=== PATIENT | male | born 2000 | race Caucasian/White ===

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

== ENCOUNTER 2021-08-03 09:58 | Emergency (ER) | payer MEDICAID, SELFPAY ==
[2021-08-03 10:02] VITALS: BP 150/67; PULSE 77; RESP 18; TEMP 36.8; O2SAT 100
--- NOTE | 2021-08-03 10:15 | DI.RAD_ITS ---
Exam(s) XR FINGER RT RING EXAM: XR FINGER RT RING CLINICAL HISTORY: crush injury. TECHNIQUE: 2D digital imaging was performed. COMPARISON: No exams were available for comparison FINDINGS: There is a displaced comminuted fracture of the tuft of the distal phalanx of the 4th-ring finger. N o radiopaque foreign body. No osseous lesions. Fracture does not involve the proximal aspect of the distal phalanx nor the DIP joint. IMPRESSION: DATA REPOSITORY: RADIATION DOSE DELIVERED:
--- NOTE | 2021-08-03 10:27 | ED.GENADUL_ITS ---
Discharge Plan Disposition Patient Disposition: HOME Condition: Stable Discharge Details Clinical Impression: Open finger fracture Primary Care Provider: None,None ED Provider: Kevin Beverly Home Meds and New Rx's Prescriptions: New cephalexin 500 mg capsule 500 mg PO QID 7 Days Qty: 28 0RF Discharge Instructions Instructions: Finger Fracture (ED) Additional Instructions: Keep your wound clean and dry, change antibiotic dressing daily. Wear finger splint until reevaluation with orthopedics. Keflex as directed. Pxex-[id number] Tylenol and/or Motrin as directed for discomfort. Rest, elevate, cool compresses every 2 hours for 20 minutes. I have placed you on the orthopedic list to help expedite outpatient orthopedic care. Please contact the office of Dr. Pearson tomorrow to set up outpatient follow-up appointment Referrals: Ion Pearson MD [ [facility] STAFF PHYSICIAN] - Discharge Data Discharge Date/Time-TO BE ENTERED AT DEPARTURE: 08/03/21 12:09 Medical Decision Making 21-year-old gentleman presents for right ring finger injury, he is right-hand dominant, the injury occurred at least a week ago, feels as though it is getting worse and he ripped his nail off today. Plan is to clean the area and appropriately dressed with antibiotic dressing and splint. Given he feels it is getting worse I will obtain routine laboratory values as well as obtain x-ray to rule out open fracture. CBC and CMP are unremarkable. No leukocytosis. X-ray reveals a comminuted fracture of the tuft. Given the injury occurred over a week ago there is nothing to physically repair today. Because he feels as though the pain is getting worse, in the setting of an open fracture, will initiate antibiotic therapy, first dose given now. By chance Dr. Pearson was in the ER evaluating other patient and I was able to quickly consult with Dr. Pearson who was able to personally evaluate the patient, comfortable with discharge and will be happy to follow him as an outpatient in his office. He was placed on the care management list to help expedite outpatient follow-up. Finger was appropriately cleaned, dressed and splinted. Patient has no additional questions or concerns and is comfortable discharge. Standard discharge and return precautions were provided This documentation was generated using [email or web address], please disregard any oddities of phrase or misspellings. Medical Records Medical records reviewed: Yes I reviewed the patient's medical records. Imaging Data Radiologic Study: Attestation: I personally reviewed and interpreted this imaging study as follows: Imaging: X-Ray Radiologist's impression: Exam(s) XR FINGER RT RING EXAM: XR FINGER RT RING CLINICAL HISTORY: crush injury. TECHNIQUE: 2D digital imaging was performed. COMPARISON: No exams were available for comparison FINDINGS: There is a displaced comminuted fracture of the tuft of the distal phalanx of the 4th-ring finger. No radiopaque foreign body. No osseous lesions. Fracture does not involve the proximal aspect of the distal phalanx nor the DIP joint. Lab Data Lab results reviewed: Yes I reviewed the patient's lab results. Labs: Laboratory Tests Range/Units 08/03/21 08/03/21 10:46 10:46 WBC (4.4-10.8) 10^3/uL 10.41 RBC (4.36-5.78) 10^6/uL 4.96 Hgb (13.5-17.5) g/dL 15.9 Hct (40.0-50.0) % 46.8 MCV (80-95) fL 94.4 MCH (27.0-33.0) pg 32.1 MCHC (32.0-36.0) % 34.0 RDW (11.8-14.1) % 12.0 Plt Count (130-400) 10^3/uL 226 MPV (8.0-11.0) fL 9.2 Immature Gran % 0.8 Neutrophils % 63.1 Lymphocytes % 23.0 Monocytes % 10.6 Eosinophils % 1.8 Basophils % 0.7 Nucleated RBC % % 0 Absolute Neutrophils (1.2-6.7) 10^3/uL 6.58 Absolute Lymphocytes (1.2-3.4) 10^3/uL 2.39 Absolute Monocytes (0.1-0.8) 10^3/uL 1.10 H Absolute Eosinophils (0.0-0.7) 10^3/uL 0.19 Absolute Basophils (0.0-0.2) 10^3/uL 0.07 Sodium (136-145) mmol/L 141 Potassium (3.5-5.1) mmol/L 4.3 Chloride (98-107) mmol/L 105 Carbon Dioxide (21.0-32.0) mmol/L 30.0 Anion Gap (3-11) mmol/L 6.0 BUN (7-18) mg/dL 12 Creatinine (0.70-1.30) mg/dL 0.8 Estimated GFR/1.73 m2 (mL/min/1.73m2) >= 60.00 Glucose (74-106) mg/dL 83 Calcium (8.5-10.1) mg/dL 9.1 Total Bilirubin (0.2-1.0) mg/dL 0.3 AST (15-37) U/L 18 ALT (16-63) U/L 34 Alkaline Phosphatase (46-116) U/L 59 Total Protein (6.4-8.2) g/dL 7.6 Albumin (3.4-5.0) g/dL 3.7 HPI General Mode of arrival: ambulatory . Date/Time Provider Initiated Documentation: 08/03/21 10:00 . Limitations to Documentation: no limitations . Information obtained by: patient . HPI Narrative: This is a 21-year-old male, dxskx-[id number]-qbrazijc, tetanus status up-to-date, presenting to the ER for evaluation of right ring finger injury that he sustained sometime last week. He states that he crushed his finger between 2 boards. Today he reports the fingernail off himself. He denies any other injury, numbness, tingling, weakness. He reports moderate to severe pain, now with some redness and drainage, concern for infection. He has not taken any gvyu-[id number] medications for his symptoms. Related Data Home Medications Medication Instructions Recorded Confirmed cephalexin 500 mg capsule 500 mg PO QID 7 Days #28 cap 08/03/21 Previous Rx's Medication Instructions Recorded cephalexin 500 mg capsule 500 mg PO QID 7 Days #28 cap 08/03/21 Allergies Allergy/AdvReac Type Severity Reaction Status Date / Time No Known Allergies Allergy Unverified 08/03/21 10:06 General Stated Complaint: Orthopedic SURY: 4 Review of Systems Constitutional Constitutional: Denies fever(s) and Denies weakness Musculoskeletal Musculoskeletal: Reports arthralgias, Denies numbness, Reports stiffness and Denies tingling Integumentary/Breasts Skin/Breast: Reports erythema Neurologic Neurologic: Denies numbness, Denies tingling and Denies weakness PFSH All Active Problems Open finger fracture (Acute) Closed fracture of tuft of distal phalanx of left thumb (Acute 01/25/19) Surgical History Tonsillectomy and adenoidectomy Family History Mother Asthma Father Substance abuse Other Essential hypertension MGGM Bipolar disorder mat 2nd cousin Schizophrenia mat great aunt Social History Smoking/Tobacco Use Status: Current every day Tobacco Type: cigarettes Smoking risk assessment performed?: Yes Alcohol Intake: current Alcohol Intake frequency: a few times a week Alcohol type: beer Drug use: Occasionally Substance use type: marijuana Do you feel safe at home: Yes Do you feel safe in your relationship?: Yes Exam Const General: cooperative, healthy appearing, comfortable and no acute distress Orientation: alert and awake HENPR Head: normal to inspection, normocephalic and atraumatic Mouth: moist mucous membranes Eyes Conjunctivae: conjunctivae normal Neck Neck: normal visual inspection, trachea midline and supple Resp Effort & Inspection: normal respiratory effort and able to speak in complete sentences Cardio Rate: regular rate Rhythm: regular rhythm Skin Lesions: no lesions Neuro General: patient alert, patient awake, moves all extremities and no focal motor deficits Cognition: normal cognition Speech: speech normal Gait: normal gait Sensory Exam: no sensory deficits noted Extrem Other: Right hand ring finger distal to the DIP there is diffuse mild swelling, erythema, warmth, tenderness, scabbing. There does not appear to be any active drainage. The the nail is missing. There appears to be a healing wound- laceration across the nail bed. 5-5 strength. Neuro, vascular, tendon intact. No lymphangitic streaking. Psych Appearance: grossly normal Mental Status: mental status grossly normal Course Vital Signs Vital signs: Vital Signs Temperature 36.8 C 08/03/21 10:02 Pulse 77 08/03/21 10:02 Respiratory Rate 18 08/03/21 10:02 Blood Pressure 150/67 H 08/03/21 10:02 Pulse Oximetry 100 08/03/21 10:02 Temperature 36.8 C 08/03/21 10:02 Temperature Source Temporal Artery Scan 08/03/21 10:02 Pulse 77 08/03/21 10:02 Respiratory Rate 18 08/03/21 10:02 Respiratory Effort Non-Labored 08/03/21 10:05 Blood Pressure 150/67 H 08/03/21 10:02 Blood Pressure Position Sitting 08/03/21 10:02 Pulse Oximetry 100 08/03/21 10:02 Oxygen Delivery Method Room Air 08/03/21 10:02 Oxygen Flow Rate 0 08/03/21 10:02 Pain Level 6 08/03/21 10:07 PAWSS Have you Been Recently Intoxicated or Drunk Within the Last 30 days?: No Have you Ever Experienced Previous Episodes of Alcohol Withdrawal?: No Have you ever Experienced Withdrawal Seizures?: No Have you ever Experienced Delirium Tremens(DT)s?: No Have you ever undergone Alcohol Rehabilitation Treatment (i.e, inpt ot outpatient treatment programs)?: No Have you ever Experienced Blackouts?: No Have you ever Combined Alcohol with other Downers within the last 90 days?: No Have you ever Combined Alcohol with any other Substance of Abuse during the last 90 days?: No Positive Blood Alcohol level on Presentation? [PCS.BAL]: No Evidence of Increased Autonomic Activity (i.e. HR>120, tremor, sweating, agitation, nausea)?: No Result: 0
[2021-08-03 10:57] LABS: Abs Immature Grans 0.08 10^3/uL (0.0-0.06); Absolute Basophil Count 0.07 10^3/uL (0.0-0.2); Absolute Eosinophil Count 0.19 10^3/uL (0.0-0.7); Absolute Lymphocyte Count 2.39 10^3/uL (1.2-3.4); Absolute Neutrophil Count 6.58 10^3/uL (1.2-6.7); Basophils % 0.7; Eosinophils % 1.8; HCT 46.8 % (40.0-50.0); HGB 15.9 g/dL (13.5-17.5); Immature Grans % 0.8; MCH 32.1 pg (27.0-33.0); MCV 94.4 fL (80-95); MPV 9.2 fL (8.0-11.0); Monocytes % 10.6; Neutrophils % 63.1; Nucleated RBC 0 %; Platelet Count 226 10^3/uL (130-400); RBC 4.96 10^6/uL (4.36-5.78); RDW-SD 41.8 fL; WBC 10.41 10^3/uL (4.4-10.8)
[2021-08-03 11:24] LABS: ALT 34 U/L (16-63); AST 18 U/L (15-37); Albumin 3.7 g/dL (3.4-5.0); Alkaline Phosphatase 59 U/L (46-116); BUN 12 mg/dL (7-18); Bilirubin, Total 0.3 mg/dL (0.2-1.0); CREATININE 0.8 mg/dL (0.70-1.30); Calcium 9.1 mg/dL (8.5-10.1); Chloride 105 mmol/L (98-107); Glucose 83 mg/dL (74-106); Potassium 4.3 mmol/L (3.5-5.1); Sodium 141 mmol/L (136-145); Total Protein 7.6 g/dL (6.4-8.2)
[2021-08-03] MEDS: Cephalexin 500 MG CAP PO (12:08)
== END 2021-08-03 12:09 | disposition home or self-care (01) ==
PROVIDERS: Emergency Provider Physician Assistant
DX: S62.634B Displaced fracture of distal phalanx of right ring finger, initial encounter for open fracture (principal); W23.0XXA Caught, crushed, jammed, or pinched between moving objects, initial encounter
CPT/HCPCS: 29130; 36415; 80053; 99283; 73140; 85025